=== PATIENT | female | born 1940 | race Caucasian/White ===

== ENCOUNTER 2018-10-23 05:11 | Emergency (ER) | payer OTHER ==
[~2018-10-23] VITALS: Ht 157.5 cm; Wt 59.0 kg
--- NOTE | 2018-10-23 05:19 | NUR ---
PT [id number] FROM THE [facility] FOR BILAT UPPER AND LOWER EXTREMITY NUMBNESS. PT AOX4. NAD NOTED. RESP EVEN AND UNLABORED. PT DENIES PAIN AT THIS TIME. PT ON MONITOR IN BED 3. WILL CONTINUE TO MONITOR.
--- NOTE | 2018-10-23 05:36 | NUR ---
TECH AT BEDSIDE FOR EKG
--- NOTE | 2018-10-23 05:49 | NUR ---
BLOOD DRAWN AND GIVEN TO LAB
[2018-10-23 05:52] LABS: BASOPHILS # (AUTO) 0.1 /CMM (0.0-0.2); BASOPHILS % (AUTO) 1.1 % (0.0-2.0); EOSINOPHILS % (AUTO) 6.7 % (0.0-6.0); HEMATOCRIT 35 % (33-45); HEMOGLOBIN 12.2 g/dL (11.5-14.8); LYMPHOCYTES # (AUTO) 2.4 /CMM (0.8-4.8); LYMPHOCYTES % (AUTO) 32.3 % (20.0-44.0); MEAN CORPUSCULAR HGB CONC 35 g/dl (31.0-36.0); MEAN CORPUSCULAR VOLUME 95 fL (82-100); MONOCYTES # (AUTO) 0.7 /CMM (0.1-1.30); MONOCYTES % (AUTO) 9.5 % (2.0-12.0); NEUTROPHILS # (AUTO) 3.7 /CMM (1.8-8.9); NEUTROPHILS % (AUTO) 50.4 % (43.0-81.0); PLATELET COUNT (AUTO) 207 /CMM (150-450); WHITE BLOOD COUNT (AUTO) 7.4 K/uL (4.3-11.0)
--- NOTE | 2018-10-23 05:52 | NUR ---
RADIOLOGY AT BEDSIDE FOR XRAY
[2018-10-23 05:59] LABS: CARBON DIOXIDE 31 mmol/L (21-32); CHLORIDE 104 mmol/L (98-107); CREATININE 1.1 mg/dL (0.6-1.3); GLUCOSE 103 mg/dL (74-106); POTASSIUM 4.1 mmol/L (3.5-5.1); SODIUM SERUM 141 mmol/L (136-145); UREA NITROGEN, BLOOD 20 mg/dL (7-18)
[2018-10-23] MEDS ORDERED: IV NS 0.9% 500 ML BAG IV ONE (06:00)
--- NOTE | 2018-10-23 06:09 | NUR ---
PT DAUGHTER AT BEDSIDE.
--- NOTE | 2018-10-23 06:26 | NUR ---
DIAPER CHANGED, UNABLE COLLECT URINE. ER MADE AWARE.
--- NOTE | 2018-10-23 06:27 | NUR ---
ER MD AT BEDSIDE TALKING TO PT AND PT DAUGHTER REGARDING LAB RESULTS AND CXR. PENDING DISPOSITION.
--- NOTE | 2018-10-23 06:44 | NUR ---
IV removed. Catheter intact and site benign. Pressure and 4x4 applied to site. No bleeding noted. Patient discharged to home in stable condition. Written and verbal after care instructions given. Patient verbalizes understanding of instruction. ambulatory with a steady gait noted. Pt daughter at bedside to take pt home.
[2018-10-23 06:45] VITALS: BP 106/53
== END 2018-10-23 06:46 | disposition home or self-care (01) ==
LOC: ER 05:18
DX: R20.2 Paresthesia of skin (principal); I10 Essential (primary) hypertension; G89.29 Other chronic pain
CPT/HCPCS: 36415; 71045; 80048; 83735; 85025; 93005; 99284; J7040